=== PATIENT | female | born 1935 | race Caucasian/White ===

== ENCOUNTER → 2018-02-10 | Outpatient (CLI) | payer MEDICARE, OTHER | LOC: M WUC 18:04 | DX: S30.0XXA Contusion of lower back and pelvis, initial encounter (principal); X58.XXXA Exposure to other specified factors, initial encounter; Y92.9 Unspecified place or not applicable | CPT/HCPCS: 87086 ==

== ENCOUNTER → 2019-01-30 | Outpatient (CLI) | payer MEDICARE ==
--- NOTE | 2019-01-30 16:26 | REP ---
Right ribs series four views: No right rib fracture is identified. There is diffuse demineralization. PA chest: There are no comparisons. There is no pneumothorax, hemothorax or pulmonary contusion. Lung stuart otherwise clear. Cardiac size is enlarged. The horace, mediastinum, skeletal structures are unremarkable except for demineralization. Impression: Essentially negative PA chest except for demineralization and cardiomegaly. Electronically Signed by Mason Cedeño MD 01/30/2019 04:18 P
== END ==
LOC: M WUC 15:52
PROVIDERS: ATTEND Physician Assistant
DX: I51.7 Cardiomegaly (principal); S20.211A Contusion of right front wall of thorax, initial encounter; X58.XXXA Exposure to other specified factors, initial encounter; Y92.9 Unspecified place or not applicable